=== PATIENT | male | born 1935 | race Caucasian/White ===

== ENCOUNTER → 2020-04-03 | Day surgery (SDC) | payer OTHER ==
[~2020-04-03] VITALS: Ht 182.9 cm; Wt 86.2 kg
[~2020-04-03] MED LIST: ASA81BEC PO; CRESTOR20 MG PO; KLOR-CON 10 ER10 MEQ PO; LASIX 40 MG TAB40 MG PO; LEVO-T50 MCG PO; LEVO-T75 MCG PO; METOPROLOL TART25 MG PO; MULTI VITAMIN1 EACH PO; NITROSTAT0.4 M1 SUBLING; PACERONE100 MG PO; PACERONE200 MG PO; VITAMIN D325 MC1 PO
--- NOTE | ~2020-04-03 | O ---
[facility] [place] [address] OPERATIVE REPORT Name: LAZ CASANOVA Room #: REG [facility]..#: [id number] Admission: 04/03/20 Attend Phys: Mika Hollis MD Discharge: Date of : 37 Report #: [id number] THIS REPORT FOR: cc: Hardik Nolasco MD,Hardik Hollis,Mika Bhatia MD ~ DATE OF SERVICE: 04/03/2020 PREOPERATIVE DIAGNOSIS: Right lower lid lesion. POSTOPERATIVE DIAGNOSIS: Right lower lid lesion. PROCEDURE: Excision of lesion of right lower lid with frozen section, control of margins and myocutaneous flap repair of defect. SURGEON: Mika Hollis MD SAW BOSS: None. ANESTHESIA: MAC. COMPLICATIONS: None. INDICATIONS FOR SURGERY: This pleasant 85-year-old gentleman has a lesion in his right medial lower lid extending on to his canthus that had been previously excised only to recur. The underlying histopathologic nature of the lesion is not presently known. He presents today for excision of this lesion with frozen sections and subsequent repair of the ensuing defect. Informed consent was obtained to include but not limited to the potential risk for loss of vision, bleeding, infection, failure to improve the problem, the potential need for further surgery or treatment. DESCRIPTION OF PROCEDURE: The patient was taken to the operating room where 2% Xylocaine with epinephrine mixed with equal parts of 0.75% Marcaine with Wydase was administered transcutaneously to the right lower lid, the right lateral canthus, the right medial canthus, the glabella and the bridge of the nose. The patient was subsequently prepped and draped in the usual sterile fashion. A fine tip skin marking pen was then utilized to outline the lesion including 2 mm of normal-appearing tissue around its entire margin. The incisions were then made with a 15C blade and the dissection carried out in the orbicularis muscle including a portion of the angular artery. The specimen was oriented on a drawing for the waiting pathologist. Hemostasis was achieved with pinpoint monopolar cautery. The pathologist snap froze the specimen and felt that our margins were likely clear, but she could not tell what the lesion was specifically. A brief discussion was undertaken with respect to taking more tissue, but I did not personally feel that there was enough of any appearance of [address] [address] OPERATIVE REPORT Name: LAZ CASANOVA Room #: REG [facility] M.R.#: [id number] Admission: 04/03/20 Attend Phys: Mika Hollis MD Discharge: Date of : 37 Report #: [id number] pathology that we would likely end up with any more information than what we already had with her having the lesion's gross entirety already in the lab. With that information at hand, a myocutaneous flap was then developed laterally to be rotated and to correct the defect in the right lower lid. Hemostasis was then re-achieved. The flap was then advanced and secured with multiple interrupted 6-0 plain gut sutures. The wound was then cleaned and dressed with bacitracin ophthalmic ointment. The patient subsequently transported to the recovery area having tolerated the procedures well with no anesthetic or operative complications being noted. By: 0801 [id number] Mika Hollis MD /nt
[2020-04-03 07:32] VITALS: BP 149/83
--- NOTE | 2020-04-04 16:06 | PATH ---
[facility] [address] [place] [address] PATHOLOGY RPT PROCEDURE Name: LAZ CASANOVA Room #: REG [facility]..#: [id number] Admission: 04/03/20 Date of : 37 Discharge: Report #: [id number] Path Case #: [id number] [facility] Accession Number: [id number] . 01 Material submitted: . eyelid - LESION RIGHT LOWER EYELID. Modifiers: right, lower . 01 Clinical history: . HISTORY OF LESION BEING SAMPLED TWICE BEFORE, NO KNOWN DIAGNOSIS PER SURGEON. . EXCISION LESION EYELID . 02 Frozen section diagnosis: . FROZEN SECTION DIAGNOSIS (Kala Patel MD) . FSA1. Skin, lesion right lower lid, excision: - Squamoproliferative lesion, cannot exclude neoplasm. - At least present at superior tip. . These findings are discussed with Dr. Mika Hollis in OR6 and a written report is placed in the patient's chart. . Frozen section performed at [facility], [address], [place] [address]. . . FROZEN SECTION GROSS DESCRIPTION Specimen is received fresh from the OR labeled with the patient's name, and "lesion right lower lid", consists of a tiny ellipse of skin measuring 1.4 x 0.5 x 0.5 cm. The specimen is oriented as superior, medial, inferior and lateral. The superior to medial to inferior margin is inked black, the inferior to lateral margin is inked blue, and the lateral to superior margin is inked orange. At this point, the specimen is sectioned into four pieces and submitted in entirety for frozen section as FSA1, subsequently submitted for permanent sections as A1. (IUV:carleen; 04/03/2020) IZHarpreet/QMS . 02 Diagnosis: Skin, lesion right lower lid, excision: - SQUAMOUS CELL CARCINOMA WITH ACANTHOLYTIC FEATURES. - Margins of resection free of malignancy on slides examined. (IUV:pit 04/04/2020) QTP 04/04/2020 1339 Local . [address] [address] PATHOLOGY RPT PROCEDURE Name: LAZ CASANOVA Room #: REG [facility] M.R.#: [id number] Admission: 04/03/20 Date of : 37 Discharge: Report #: [id number] Path Case #: [id number] Comment: The squamous cell carcinoma is a tiny focus, much of the background is comprised of hyperkeratotic actinic keratosis along with mild sebaceous hyperplasia. The same is identified at the superior tip as noted at the time of the frozen section. Deeper levels (closer to the actual margin) on the permanent section slides are free of malignancy. (IUV:pit 04/04/2020) . 02 Electronically signed: . Kala Patel MD, Pathologist NPI- [id number] . 01 Gross description: . PLEASE SEE FROZEN SECTION GROSS DESCRIPTION. /QMS 04/03/2020 1132 Local . 02 Pathologist provided ICD-10: C44.1222 . 02 CPT . 570903, [id number] Specimen Comment: A courtesy copy of this report has been sent to [phone] Specimen Comment: Report sent to Performed at: [address], [place] [id number] MD Irineo Ventura MD Phone: [phone] Performed at: [address] [id number] MD Kala Patel MD Phone: [phone]
== END | disposition home or self-care (01) ==
LOC: OR 06:17
PROVIDERS: ATTEND Ophthalmology
DX: C44.1222 Squamous cell carcinoma of skin of right lower eyelid, including canthus (principal); I10 Essential (primary) hypertension; I25.10 Atherosclerotic heart disease of native coronary artery without angina pectoris; I25.2 Old myocardial infarction; Z98.890 Other specified postprocedural states; Z79.899 Other long term (current) drug therapy; Z87.891 Personal history of nicotine dependence; Z95.0 Presence of cardiac pacemaker; Z79.01 Long term (current) use of anticoagulants; Z95.2 Presence of prosthetic heart valve; Z88.8 Allergy status to other drugs, medicaments and biological substances
CPT/HCPCS: 50010; 50101; 50386; 50398; 51636; 56531; 62110; 62850; 70005